=== PATIENT | male | born 1980 | race Caucasian/White ===

== ENCOUNTER 2016-11-20 22:21 | Emergency (ER) | payer OTHER ==
[~2016-11-20] VITALS: Ht 177.8 cm; Wt 90.7 kg
[2016-11-20 22:35] LABS: URINE BILIRUBIN NEGATIVE (Negative); URINE BLOOD NEGATIVE (Negative); URINE COLOR YELLOW; URINE GLUCOSE-RANDOM* NEGATIVE (Negative); URINE KETONES NEGATIVE (Negative); URINE NITRITE NEGATIVE (Negative); URINE PROTEIN (DIPSTICK) NEGATIVE (Negative); URINE SPECIFIC GRAVITY >= 1.030 (1.003-1.035); URINE UROBILINOGEN 0.2 E.U./dl (0.2-1.0)
[2016-11-20 22:53] LABS: ABSOLUTE NEUTROPHILS 6.9 thou/uL (1.4-8.2); BASOPHILS 0.4 % (0.0-2.0); EOSINOPHILS 2.7 % (0.0-3.0); HEMATOCRIT 44.9 % (42.0-52.0); HEMOGLOBIN 15.2 gm/dL (14.0-18.0); LYMPHOCYTES 26.8 % (24.0-44.0); MCH 29.6 pg (26.0-34.0); MCHC 33.8 g/dL (28.0-37.0); MCV 87.7 fL (80.0-100.0); MONOCYTES 6.1 % (1.0-8.0); PLATELET COUNT 266 thou/uL (150-400); RBC 5.12 mil/uL (4.50-6.00); RDW 14.7 % (10.5-14.5); WBC 10.7 thou/uL (4.0-11.0)
[2016-11-20 22:55] LABS: MANUAL DIFF NO
[2016-11-20 23:02] LABS: POTASSIUM 3.9 mmol/L (3.5-5.1)
[2016-11-20 23:06] LABS: ALBUMIN 3.7 g/dL (3.4-5.0); TOTAL BILIRUBIN 0.4 mg/dL (<0.1-1.0); TOTAL PROTEIN 7.7 g/dL (6.4-8.2)
[2016-11-20] MEDS ORDERED: CARAFATE 1 GM TA1 G1 PO (23:40)
[2016-11-20] MEDS ORDERED: FAMOTIDINE20 MG PO (23:40)
[2016-11-20 23:52] VITALS: BP 136/73
== END 2016-11-20 23:44 | disposition home or self-care (01) ==
LOC: ER 22:21
PROVIDERS: Physician Assistant
DX: K29.70 Gastritis, unspecified, without bleeding (principal); G47.30 Sleep apnea, unspecified; I10 Essential (primary) hypertension; F10.99 Alcohol use, unspecified with unspecified alcohol-induced disorder